=== PATIENT | male | born 1980 | race Asian ===

== ENCOUNTER 2018-08-25 14:22 | Outpatient (CLI) | payer OTHER | END 2018-08-25 14:23 | disposition home or self-care (01) | LOC: SC 14:22 | PROVIDERS: ATTEND Internal Medicine Pulmonary Disease | DX: G47.33 Obstructive sleep apnea (adult) (pediatric) (principal) | CPT/HCPCS: 99203; 99212 ==

== ENCOUNTER 2019-10-22 10:15 | Outpatient (CLI) | payer OTHER ==
--- NOTE | 2019-10-22 11:12 | SLEEP CARE CONSULTATION ---
Information from patient questionnaire entered by Patricia Najera. I have reviewed and concur with the information entered by Patricia Najera. This document represents the service I personally performed and the decisions made by me, Myra Garnett, RN, MSN, GEOTHER[employer]. History of Present Illness Previous diagnosis: Moderate, Obstructive Sleep Apnea-Hypopnea Syndrome AHI: 20.6 Reason for follow up: annual (last seen 2018) Equipment type: CPAP Equipment obtained from: [employer] 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 denies: aerophagia, mask discomfort, air blowing in eyes, mask leak noise, nasal congestion, epistaxis Observed to snore while using device: No Current pressure setting perceived as: comfortable On therapy, patient: reports: sleeping better (cant sleep without CPAP), awakening more refreshed, being more awake and alert during the day, more rested overall. denies: drowsiness while driving Initial [place] Sleepiness Scale score: 10 Current [place] Sleepiness Scale score: 10 (has increased work out sessions lately to lose weight) Allergies and Home Medications Known drug allergies: No Home medication list reviewed: Yes Allergy and home medication list: lisinopril 20mg hydrochlorthiazide 25mg Review of Systems Review of systems same as previous: Yes Physical Exam Blood Pressure: 112/90 (just came in from workout / monitors at home with usual 120/80) Cuff size: long Heart Rate: 82 O2 Saturation: 98 Height: 5 ft 7 in Weight: 216 lb Weight change since last visit: lost 17 pounds Body Mass Index: 33.8 BMI Classification: Obesity Class 1 Impression and Plan 1. Obstructive Sleep Apnea-Hypopnea Syndrome, moderate, with good treatment compliance and good apnea control. On CPAP therapy, the patient has better sleep quality and is more rested overall. Since he has lost about 17 pounds since last seen and plans on losing about 40 more pounds slowly, I will keep him on autoCPAP pressure. Since his CPAP is over 5 years old and of reasonable use, I will update CPAP. He has had difficulty in set up in past due to his travel schedule. Thus he is advised to contact this office if problems so we can assist. He will not be back in this area until sometime in November. 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 Until then to reduce condensation, a hose cover can be bought online as shown. Then he can increase his humidity to reduce his current oral dryness. He is also deploying in a few months. I explained that he will need an order from [facility] for 6 months of CPAP supplies during that time. A CPAP battery appears also to be needed for his work and needs to have his [facility] order from [facility] after he updates his CPAP so will have correct battery. Patient had questions about the new updated CPAP styles and shown differences. After some discussion, either CPAP would be okay for update. Patient's apnea severity and rationale for treatment to reduce apnea, improve sleep quality and reduce cardiovascular and cerebrovascular events was reviewed. I also reviewed the benefit of consistent device use of CPAP for hypertension * Update CPAP pressure at 4-19 cmH2O * CPAP battery and deployment RX from [facility] after update CPAP * add hose cover until can update CPAP * increase humidity * Notify me if snoring with mask or feeling that the pressure is too much or too little * Continue to lose weight * Call this office if any problems using CPAP * Return for follow up in 1 month after new device , or sooner if concerns arise . Time Spent with Patient (minutes): 35 I spent 100% of this visit face to face with the patient with greater than 50% of this was spent time counseling the patient and coordination of care.
[2019-10-22 16:41] VITALS: BP 112/90
== END 2019-10-22 10:16 | disposition home or self-care (01) ==
LOC: SC 10:15
PROVIDERS: ATTEND Nurse Practitioner Family
DX: G47.33 Obstructive sleep apnea (adult) (pediatric) (principal); E66.9 Obesity, unspecified; Z68.33 Body mass index [BMI] 33.0-33.9, adult
CPT/HCPCS: 99212; 99214

== ENCOUNTER 2020-11-14 09:04 | Emergency (ER) | payer OTHER ==
[2020-11-14] MEDS ORDERED: COLCHICINE 0.6 MG TABLET PO STA (09:17)
[2020-11-14] MEDS ORDERED: KETOROLAC 60 MG/2 ML VIAL IM STA (09:17)
[2020-11-14] MEDS ORDERED: predniSONE 20 MG TABLET PO STA (09:17)
--- NOTE | 2020-11-14 09:19 | ED Physician Documentation ---
PD HPI LOWER EXT INJURY - Stated complaint Stated Complaint: RT FT PX - Chief complaint Chief Complaint: Ext Problem - History obtained from History obtained from: Patient - Additional information Additional information: 40-year-old gentleman with history of gout presents with pain at the right first MTP starting yesterday. No fevers. No history of trauma. Review of Systems Constitutional: reports: Reviewed and negative Eyes: reports: Reviewed and negative Ears: reports: Reviewed and negative Nose: reports: Reviewed and negative Throat: reports: Reviewed and negative PD PAST MEDICAL HISTORY - Present Medications Home Medications: Ambulatory Orders Medication Instructions Recorded Confirmed hydroCHLOROthiazide 25 mg PO DAILY 11/14/20 11/14/20 [Hydrochlorothiazide] traZODone [Desyrel] 200 mg PO 11/14/20 - Allergies Allergies/Adverse Reactions: Allergies Allergy/AdvReac Type Severity Reaction Status Date / Time No Known Drug Allergies Allergy Verified 11/14/20 09:11 PD ED PE NORMAL - Vitals Vital signs reviewed: Yes - General General: Alert and oriented X 3, No acute distress - Extremities Extremities: Other (Warmth and redness of the right first MTP and pain with passive range of motion at the first digit of the right foot consistent with gout.) - Neuro Neuro: Alert and oriented X 3, Normal speech Results - Vitals Vitals: Vital Signs - 24 hr 11/14/20 11/14/20 09:09 09:35 Temperature 36.4 C L 36.8 C Heart Rate 84 85 Respiratory 20 18 Rate Blood Pressure 165/92 H 169/103 H O2 Saturation 97 98 Oxygen O2 Source Room air PD MEDICAL DECISION MAKING - ED course ED course: 40-year-old gentleman with gout/podagra. 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 Departure - Departure Disposition: Home, Self Care Clinical Impression: Podagra Condition: Good Record reviewed to determine appropriate education?: Yes Instructions: ED Arthritis Gout Comments: After this flare has subsided, talk with your doctor about starting allopurinol in a couple of months. Return for new or worsening symptoms. Do not drink or drive while taking narcotic pain medication. Note that many narcotic pain relievers also contain Tylenol/acetaminophen. Please ensure that your total dose of acetaminophen from all sources does not exceed 3 g (3000 mg) per day. You may get constipated while on this medication. Take a stool softener such as Colace twice a day while you are on it. Also add an [id number] laxative such as senna or MiraLAX on any day that you do not have a bowel movement. If you received a narcotic pain medication or sedative while in the emergency department, do not drive for the next 24 hours. Forms: Activity restrictions Discharge Date/Time: 11/14/20 09:45
[2020-11-14 09:37] VITALS: BP 169/103
== END 2020-11-14 09:45 | disposition home or self-care (01) ==
LOC: ED 09:04
DX: M10.071 Idiopathic gout, right ankle and foot (principal)
CPT/HCPCS: 96372; 99283; A9270; J7512

== ENCOUNTER 2020-12-15 11:53 | Emergency (ER) | payer OTHER ==
[2020-12-15] MEDS ORDERED: KETOROLAC 30 MG/ML VIAL IM STA (12:53)
--- NOTE | 2020-12-15 12:54 | ED Physician Documentation ---
History of Present Illness - Stated complaint Stated Complaint: RT FOOT PX - Chief complaint Chief Complaint: Ext Problem - History obtained from History obtained from: Patient - Additonal information Additional information: 40yM with pmh gout p/w R first MTP joint pain, gradual onset upon waking this am, constant aching/throbbing, progressively worsening, nonradiating, severe, worse with weight bearing. no traumatic injury. no fevers. Review of Systems Constitutional: denies: Fever Musculoskeletal: reports: Extremity pain, Joint pain Neurologic: denies: Focal weakness, Numbness PD PAST MEDICAL HISTORY - Past Medical History Past Medical History: Yes Cardiovascular: Hypertension Musculoskeletal: Gout - Past Surgical History Past Surgical History: No - Present Medications Home Medications: Ambulatory Orders Medication Instructions Recorded Confirmed hydroCHLOROthiazide 25 mg PO DAILY 11/14/20 11/14/20 [Hydrochlorothiazide] traZODone [Desyrel] 200 mg PO 11/14/20 Naproxen [Naprosyn] 500 mg PO BID #28 tab 12/15/20 - Allergies Allergies/Adverse Reactions: Allergies Allergy/AdvReac Type Severity Reaction Status Date / Time No Known Drug Allergies Allergy Verified 12/15/20 12:18 - Social History Does the pt smoke?: Yes Smoking Status: Current every day smoker Does the pt drink ETOH?: No Does the pt have substance abuse?: No - Immunizations Immunizations are current?: Yes - POLST Patient has POLST: No PD ED PE NORMAL - Vitals Vital signs reviewed: Yes - General General: Alert and oriented X 3, No acute distress - HEENT HEENT: Atraumatic, PERRL, EOMI - Derm Derm: Normal color, Other (R first MTP joint mildly swollen without rubor/calor) - Extremities Extremities: Other (R MTP joint ttp. 2+ DP/PT pulses) - Neuro Neuro: Alert and oriented X 3 Results - Vitals Vitals: Vital Signs - 24 hr 12/15/20 12/15/20 12:12 13:56 Temperature 36.6 C Heart Rate 88 85 Respiratory 18 16 Rate Blood Pressure 148/76 H 144/84 H O2 Saturation 99 100 Oxygen O2 Source Room air PD MEDICAL DECISION MAKING - ED course ED course: 40yM p/w uncomplicated gout flare. patient states he has normal kidney function and no hisotry of bleeding therefore I am prescribing a course of naproxen. strict return precautions given. patient will f/u with pmd Dr. Wynn. Departure - Departure Disposition: 01 Home, Self Care Clinical Impression: Gout flare Condition: Good Instructions: Gout Attack Tx Follow-Up: ELMER WYNN DO [Physician No Access] - Prescriptions: Naproxen [Naprosyn] 500 mg PO BID #28 tab Comments: You were seen in the emergency department for a gout flare. Take your medication as prescribed and follow-up with your primary doctor Dr. Wynn in 1 week. Return to the emergency department if you have any new or worsening symptoms or other concerns. Forms: Activity restrictions Discharge Date/Time: 12/15/20 13:57
[2020-12-15 13:57] VITALS: BP 144/84
== END 2020-12-15 13:57 | disposition home or self-care (01) ==
LOC: ED 11:53
DX: M10.9 Gout, unspecified (principal); F17.200 Nicotine dependence, unspecified, uncomplicated
CPT/HCPCS: 96372; 99283; 99284

== ENCOUNTER 2022-07-16 10:44 | Outpatient (CLI) | payer OTHER ==
--- NOTE | 2022-07-16 19:07 | MRI Report ---
PROCEDURE: MRI lumbar spine without contrast INDICATIONS: LOW BACK PAIN TECHNIQUE: Noncontrast sagittal T1 spin echo and T2 fast echo, sagittal STIR, axial T1 and T2 fast spin echo thr ough the lumbar spine. In cases with scoliosis, additional coronal T2 fast spin echo may be performe d. COMPARISON: None. FINDINGS: Image quality: Excellent. Alignment and Curvature: There is normal bony alignment. Bone Marrow: Marrow is of normal overall signal. No acute vertebral body compression fractures. Spinal Cord: Conus medullaris terminates at the L1 level. Visualized cord demonstrates normal signa l and size. Paraspinous Soft Tissues: No paravertebral masses. T12-L1: Normal in appearance. L1-L2: Normal in appearance. L2-L3: Normal in appearance. L3-L4: Disc space narrowing with circumferential disc bulge results combines with dorsal epidural f at result in moderate central stenosis. No foraminal stenosis L4-L5: Mild disc height loss and circumferential disc bulge combines with dorsal epidural fat resul t in moderate central stenosis. No foraminal stenosis L5-S1: Disc height is maintained. No central or foraminal stenosis IMPRESSION: Multilevel degenerative disc disease and arthropathy results in varying degrees of central and forami nal stenosis including moderate central stenosis at L3-4 and L4-5 Reviewed by: Bao Carrion MD on 07/16/2022 6:06 PM SELENE Approved by: Bao Carrion MD on 07/16/2022 6:06 PM SELENE Station ID: [id number]
== END 2022-07-16 10:45 | disposition home or self-care (01) ==
LOC: DI 10:44
DX: M47.816 Spondylosis without myelopathy or radiculopathy, lumbar region (principal); M51.36 Other intervertebral disc degeneration, lumbar region; M48.061 Spinal stenosis, lumbar region without neurogenic claudication